=== PATIENT | female | born 1960 | race Two or more races ===

== ENCOUNTER → 2024-08-09 | Outpatient (CLI) | payer MEDICAID, SELFPAY ==
--- NOTE | 2024-08-09 11:00 | XR_ITS ---
Examination: Screening digital mammography, bilateral Computer aided detection 3-D breast Tomosynthesis, bilateral Date and time of exam: 08/09/2024, 10:58 AM Comparisons: August 2014 through August 2023 Indications: Screening Technique: Nonmagnified MLO, CC views of the breasts to been obtained, reconstructed from 3-D Tomosynthesis images. R2 computer aided detection program utilized for evaluation of suspicious masses and/or abnormal calcifications. 3-D Tomosynthesis images obtained. Technologist: Findings: There are scattered areas of fibroglandular density. No evidence of abnormal masses or suspicious calcifications. Impression: BI-RADS category 1: Negative findings (within normal) Recommend 1 year follow-up mammogram
== END | disposition home or self-care (01) ==
PROVIDERS: Referring Provider Physician Assistant; Visit Provider Physician Assistant
DX: Z12.31 Encounter for screening mammogram for malignant neoplasm of breast (principal); R92.313 Mammographic fatty tissue density, bilateral breasts
CPT/HCPCS: 77063; 77067

== ENCOUNTER 2024-12-10 23:06 | Inpatient (IN) | payer MEDICAID, SELFPAY ==
[2024-12-10 23:07] VITALS: BMI 19.1
--- NOTE | 2024-12-10 23:10 | EKG_ITS ---
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
--- NOTE | 2024-12-10 23:14 | XR_ITS ---
Examination: PA lateral chest 2 views. TECHNIQUE: PA lateral chest 2 views Date and time: December 10, 2024, 11:20 PM INDICATIONS: Chest pain shortness of breath today FINDINGS: Normal in size. The lungs are clear. The osseous structures are intact IMPRESSION: No active disease.
[2024-12-10 23:57] VITALS: BP 134/71; PULSE 52; RESP 18; TEMP 36.8; O2SAT 96
[2024-12-11] VITALS (19 sets, daily range): BP systolic 87–172; BP diastolic 51–88; PULSE 50–80; RESP 15–98; TEMP 36.1–36.6; O2SAT 95–98
[2024-12-11 00:05] LABS: Basophils # (Auto) 0.0 Thou/mm3 (0.0-0.2); Basophils % (Auto) 0 % (0-2.5); Eosinophils # (Auto) 0.0 Thou/mm3 (0.0-0.5); Eosinophils % (Auto) 1 % (0-10); Hematocrit 40.7 % (36.0-46.0); Hemoglobin 14.1 g/dL (12.0-16.0); Immature Granulocytes Auto 0.03 Thou/mm3 (0.00-0.00); Lymphocytes # (Auto) 1.9 Thou/mm3 (1.0-4.8); Lymphocytes % (Auto) 29 % (10-50); Mean Corpuscular HGB Conc 34.6 g/dl (31.0-37.0); Mean Corpuscular Hemoglobin 31.0 pg (25.0-35.0); Mean Corpuscular Volume 90 fL (80-100); Monocytes # (Auto) 0.4 Thou/mm3 (0.0-0.8); Monocytes % (Auto) 6 % (0-12); Neutrophils # (Auto) 4.2 Thou/mm3 (1.8-7.7); Neutrophils % (Auto) 64 % (37-80); Nucleated Red Blood Cell # 0.00 Thou/mm3 (0.00-0.00); Nucleated Red Blood Cell % 0 /100 WBC (0); Platelet Count 146 Thou/mm3 (140-440); RDW Standard Deviation 40.7 fL (36.4-46.3); Red Blood Count 4.55 Miln/mm3 (4.00-5.20); White Blood Count 6.6 Thou/mm3 (3.6-11.0)
--- NOTE | 2024-12-11 00:23 | PD.EDCHEST ---
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 Reports associated shortness of breath nausea and vomiting. Reports symptoms tend to worsen with exertion. No definite pleuritic component. No reported recent URI or cough. Cardiac risk factors are positive for diabetes hypertension although negative hypercholesterolemia family history of heart disease or tobacco use. Related Data Home Medications ?Medication ?Instructions ?Recorded ?Confirmed lisinopril 20 mg tablet 10 mg PO QDAY #0 tabs 01/17/14 08/10/18 amoxicillin 500 mg capsule 500 mg PO BID 08/10/18 08/10/18 ibuprofen 600 mg tablet 600 mg PO TID PRN Pain 08/10/18 08/10/18 sitagliptin phosphate 50 1 tab PO BID 08/10/18 08/10/18 mg-metformin 1,000 mg tablet (Janumet) Previous Rx's ?Medication ?Instructions ?Recorded hydrocodone 5 mg-acetaminophen 325 1 tab PO BID PRN pain #10 tabs 11/05/20 mg tablet fluconazole 150 mg tablet 150 mg PO .x1 #1 tab 10/30/21 (Diflucan) acetaminophen 500 mg tablet 500 mg PO QID PRN pain #30 tabs 05/17/22 (Tylenol Extra Strength) hydrocodone 5 mg-acetaminophen 325 1 tab PO BID PRN pain #10 tabs 04/23/23 mg tablet ibuprofen 400 mg tablet 400 mg PO Q8H PRN pain #30 tabs 04/23/23 Allergies Allergy/AdvReac Type Severity Reaction Status Date / Time No Known Allergies Allergy Verified 12/10/24 23:06 Review of Systems Review of Systems Narrative Review of Systems: GEN: No fever, no chills, no weight loss EYES: No discharge, no visual changes, no pain HEENT: No ear pain, no congestion, no sore throat PULM: No shortness of breath, no cough, no congestion CV: As per HPI GI: No nausea, no vomiting, no diarrhea, no pain, no constipation : No frequency, no urgency and no dysuria MUSC/SKEL: No joint pain, no back pain SKIN: No rash PSYCH: No hallucinations, no depression HEME/LYMPH: No easy bleeding or bruising tendencies NEURO: No weakness, no headache Past Medical History Past Medical History CARDIAC: Positive Hypertension ENDOCRINE: Positive Diabetes Mellitus Type 2 ED Exam General Limitations: Present no limitations General appearance: Present alert and in no apparent distress Head Head exam: Present atraumatic Eye Eye exam: Present normal appearance, PERRL and EOMI ENT ENT exam: Present normal exam, normal oropharynx and mucous membranes moist Neck Neck exam: Present normal inspection, full ROM and trachea midline Chest Chest inspection: Present normal inspection and symmetric chest wall rise Respiratory Respiratory exam: Present normal lung sounds bilaterally Cardiovascular Cardiovascular exam: Present regular rate, normal rhythm and normal heart sounds Abdominal Exam Abdominal exam: Present soft, tenderness, normal bowel sounds and other (Mild epigastric abdominal tenderness) Extremities Exam Extremities exam: Present normal inspection and full ROM Back Exam Back exam: Present normal inspection and full ROM Neurological Exam Neurological exam: Present alert, oriented X3 and CN II-XII intact Psychiatric Psychiatric exam: Present normal affect and normal mood Skin Skin exam: Present warm, dry, intact and normal color Course Quality Measures none Orders Category Date Time Status EKG (ED ONLY) *Do not use* NOW Care 12/10/24 23:10 Completed EKG (ED ONLY) *Do not use* NOW Care 12/11/24 02:29 Completed Notify provider NOW Care 12/11/24 02:32 Active EKG (ED Only) Stat Exams 12/10/24 23:10 Draft EKG (ED Only) Stat Exams 12/11/24 02:29 Draft XR chest 2V Stat Exams 12/10/24 23:14 Completed B-Type Natriuretic Peptide Stat Lab 12/10/24 23:34 Completed CBC Stat Lab 12/10/24 23:34 Completed Comprehensive Metabolic Panel Stat Lab 12/10/24 23:34 Completed Drug Screen,Urine Stat Lab 12/11/24 00:54 Completed LDH (Lactate Dehydrogenase) Stat Lab 12/10/24 23:34 Completed Lipase Stat Lab 12/10/24 23:34 Completed Magnesium Stat Lab 12/10/24 23:34 Completed Partial Thromboplastin Time AM DRAW Lab 12/13/24 05:00 Ordered Partial Thromboplastin Time Stat Lab 12/10/24 23:34 Completed Prothrombin Time with INR AM DRAW Lab 12/13/24 05:00 Ordered Prothrombin Time with INR Stat Lab 12/10/24 23:34 Completed Troponin I Stat Lab 12/10/24 23:34 Completed Troponin I Stat Lab 12/11/24 01:50 Completed UA, C/S IF [Urinalysis, C/S if Indicated] Stat Lab 12/11/24 00:54 Completed Urine Culture Stat Lab 12/11/24 00:54 Received Aspirin Med 12/11/24 00:37 Discontinued 325 mg PO X1 ONE Heparin Inj Med 12/11/24 02:30 Discontinued 2,650 unit IV X1 ONE Heparin/D5w 25K 250 ML Ivpb [Heparin in D5w Ivpb] Med 12/11/24 02:30 Active 25,000 unit in 250 ml IV 12 units/kg/hr Metoclopramide Inj [Reglan Inj] Med 12/11/24 00:35 Discontinued 5 mg IVP X1 ONE Morphine Inj Med 12/11/24 00:35 Discontinued 2 mg IVP X1 ONE Nitroglycerin Oint 2% [Nitro-paste Oint 2%] Med 12/11/24 00:37 Discontinued 1 inch TOP X1 ONE Vital Signs Vital signs: Vital Signs Temperature 98.2 F 12/10/24 23:57 Pulse Rate 52 L 12/10/24 23:57 Respiratory Rate 18 12/10/24 23:57 Blood Pressure 134/71 H 12/10/24 23:57 Pulse Oximetry (%) 96 12/10/24 23:57 Oxygen Delivery Method Room Air 12/10/24 23:57 Chest Pain MDM Narrative MDM Narrative:: Patient presenting with onset of left precordial chest pain/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 Reports associated shortness of breath nausea and vomiting. Reports symptoms tend to worsen with exertion. No definite pleuritic component. No reported recent URI or cough. Please see PE findings. Patient placed on cardiac technician underwent basic cardiac workup and treated with low-dose IV narcotic analgesics/antiemetic. Initial EKG demonstrated clinical ST segment elevations in the inferior leads although no reciprocal ST segment depressions identified. Troponin I was mildly elevated. Patient was treated with topical nitrates/full dose aspirin and serial EKG and cardiac enzymes demonstrated developing non-STEMI. These findings were communicated with dance hall host/hostess who suggested heparinization and observation with intended catheterization. Patient data External records reviewed:: [facility] previous records Clinical information provided by:: patient and family Social determinants that could affect healthcare access:: none Patient has the following chronic illnesses:: Diabetes mellitus/hypertension How is presenting disease/condition affected by chronic disease/condition?: exacerbated by (Patient with multiple cardiac risk factors contributing to ACS) Evaluation data The following diagnostics were reviewed and interpreted by me:: lab results and EKG tracing(s) (EKG interpreted by emergency room physician demonstrates sinus bradycardia with rate of 52 bpm. There is equivocal ST segment elevations noted in the leads III and aVF. There were no reciprocal depressions noted. Orient is leftward intervals are normal. Evidence of an incomplete right bundle branc) Lab and/or radiology exams considered but not ordered:: None Interpretation Summary: Laboratory markers pertinent for elevated troponin and EKG suggestive of non-STEMI. Medications / Prescriptions Medications or Prescriptions considered but not ordered:: None Medication administrations:: Medication Administration History Heparin Sodium/Dextrose (Heparin In D5w Ivpb) 25,000 unit in 250 mls @ 5.334 mls/hr IV .Q24H SUZAN; Protocol Stop: 12/25/24 02:29 Discontinued Medications Aspirin (Aspirin 325 Mg Tablet) 325 mg PO X1 ONE Stop: 12/11/24 00:38 Last Admin: 12/11/24 00:53 Dose: 325 mg Documented By: BOB Heparin Sodium (Porcine) (Heparin Sod Inj 5000 Unit/Ml Vial) 2,650 unit 60 unit/kg (2650 unit) IV X1 ONE; Protocol Stop: 12/11/24 02:31 Metoclopramide HCl (Metoclopramide Inj 5 Mg/Ml Vial 2 Ml) 5 mg IVP X1 ONE; Protocol Stop: 12/11/24 00:36 Last Admin: 12/11/24 00:52 Dose: 5 mg Documented By: BOB Morphine Sulfate (Morphine Sulf Inj 10 Mg/Ml Vial) 2 mg IVP X1 ONE Stop: 12/11/24 00:36 Last Admin: 12/11/24 00:52 Dose: 2 mg Documented By: BOB Nitroglycerin (Nitroglycerin Oint 2% 1 Inch Packet) 1 inch TOP X1 ONE Stop: 12/11/24 00:38 Last Admin: 12/11/24 00:53 Dose: 1 inch Documented By: BOB See above medications administered Consultations Consultation(s) initiated? (list below): Yes Consultation #1 (Physician, Specialty, Details): Dr. Crawford, dance hall host/hostess Time: 02:48 Consultation #2 (Physician, Specialty, Details): Hospitalist Time: 02:48 Diagnosis Chest Pain Differential Diagnosis: other (Non-STEMI) Most likely diagnosis given after review of the tests above:: Non-STEMI Admission Indicated Admission indicated?: indicated Explain why admission is indicated or not indicated:: Prevent hemodynamic compromise/ Admission Request Was there a request for admission?: Yes Admission Attestation Admission request attestation: Discussed case with [] from Hospitalist service regarding admission. Discussed patients ED course, exam findings, labs, and radiology results. The Hospitalist [agrees,declines] to accept the patient for admission. Disposition Plan Disposition Plan: Admit Critical Care Time Critical Care Time Critical Care Time: Yes Total Critical Care Time (min.): 45 Attestation: Critical care time spent with this patient 45 minutes requiring my immediate intervention and after prevent hemodynamic compromise secondary to acute non-STEMI. This is inclusive of continuous bedside management, review laboratory radiographic data, consultations made, serial exams not including billed procedures. Discharge Plan Prescriptions/Referrals Prescriptions/Med Rec: No Action lisinopril 20 MG tablet 10 mg PO QDAY Qty: 0 hydrocodone-acetaminophen 5-325 mg tablet 1 tab PO BID MDD 10 PRN (Reason: pain) Qty: 10 0RF fluconazole [Diflucan] 150 mg tablet 150 mg PO .x1 Qty: 1 0RF ibuprofen 600 mg Tablet 600 mg PO TID PRN (Reason: Pain) Janumet 50-1,000 mg Tablet 1 tab PO BID amoxicillin 500 mg Capsule 500 mg PO BID acetaminophen [Tylenol Extra Strength] 500 mg tablet 500 mg PO QID PRN (Reason: pain) Qty: 30 0RF ibuprofen 400 mg tablet 400 mg PO Q8H PRN (Reason: pain) Qty: 30 0RF hydrocodone-acetaminophen 5-325 mg tablet 1 tab PO BID MDD 10 PRN (Reason: pain) Qty: 10 0RF Referrals: Flory Perdue PA-C [Primary Care Provider] - In 1 week Problem List Clinical Impression: Non-ST elevated myocardial infarction (non-STEMI) Patient/Caregiver Discharge Instructions Print Language: Czech
[2024-12-11 00:29] LABS: INR 1.0 (0.9-1.3); Partial Thromboplastin Time 21.5 Seconds (22.0-36.0); Prothrombin Time 10.7 Seconds (9.0-12.2)
[2024-12-11 00:32] LABS: B-Type Natriuretic Peptide 61 pg/mL (0-100)
[2024-12-11 00:34] LABS: Albumin, Serum 4.5 gm/dL (3.4-4.8); Albumin/Globulin Ratio 1.8 (1.2-2.2); Alkaline Phosphatase 144 U/L (46-116); Anion Gap 10 (7-16); Aspartate Amino Transferase 21 U/L (0-34); BUN/Creatinine Ratio 15 Ratio (12-20); Bilirubin,Total 0.8 mg/dL (0.3-1.2); Blood Urea Nitrogen 12 mg/dL (9-23); Calcium 9.2 mg/dL (8.3-10.6); Calcium (Corrected) 9.2 mg/dL (8.5-10.1); Carbon Dioxide 27.4 mMol/L (20.0-31.0); Chloride 103 mMol/L (98-107); Creatinine (Component) 0.8 mg/dL (0.6-1.3); Estimated Creatinine Clearance 48.5 mL/min (>60); Globulin 2.5 gm/dL (2.3-3.5); Glucose 286 mg/dL (74-106); LDH (Lactate Dehydrogenase) 202 U/L (120-246); Magnesium 1.6 mg/dL (1.6-2.6); Osmolality,Calculated 289 (275-295); Potassium 3.6 mMol/L (3.4-5.1); Sodium 140 mMol/L (136-145); Total Protein 7.0 gm/dL (5.7-8.2); eGFR > 60 See Note
[2024-12-11 00:35] LABS: Troponin I 0.236 ng/mL (0.0-0.045)
[2024-12-11 00:45] LABS: Alanine Aminotransferase 10 U/L (10-49)
[2024-12-11] MEDS: METOCLOPRAMIDE INJ 5 MG/ML VIAL 2 ML IVP (00:52)
[2024-12-11] MEDS: MORPHINE SULF INJ 10 MG/ML VIAL 2 MG IVP (00:52)
[2024-12-11] MEDS: NITROGLYCERIN OINT 2% 1 INCH PACKET TOP (00:53)
[2024-12-11 01:10] LABS: Lipase 39 U/L (12-53)
[2024-12-11 01:38] LABS: Collection Type, Urine Clean Catch
[2024-12-11 01:47] LABS: Bilirubin,Urine Negative (Negative); Blood,Urine Negative (Negative); Clarity,Urine Clear (Clear/Hazy); Color,Urine Lt-Yellow (Lt Yel-Yel); Glucose, Urine 4+ (Negative); Ketones,Urine 1+ (Negative); Leukocyte Esterase,Urine Positive (Negative); Nitrite,Urine Negative (Negative); PH,Urine 7.5 (5.0-7.0); Protein,Urine Negative (Neg - Trace); RBC,Urine 5 /hpf (0-3); Specific Gravity,Urine 1.036 (1.001-1.035); Squamous Epithelial Cell,Urine 7 /hpf (0-5); Urobilinogen,Urine Negative mg/dL (0.0-1.0); WBC,Urine 27 /hpf (0-5)
[2024-12-11 01:49] LABS: Culture Indicated,Urine Yes
[2024-12-11 01:53] LABS: Amphetamine/Methamp Scrn,U Negative (Negative); Barbiturate Screen,Urine Negative (Negative); Benzodiazepines Screen,Urine Negative (Negative); Benzoylecgonine Screen, Ur Negative (Negative); Fentanyl Screen,Urine Negative (Negative); Opiate Screen,Urine Negative (Negative); THC Screen,Urine Negative (Negative)
[2024-12-11 02:28] LABS: Troponin I 3.909 ng/mL (0.0-0.045)
--- NOTE | 2024-12-11 02:29 | EKG_ITS ---
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
[2024-12-11] MEDS: HEPARIN SOD INJ 5000 UNIT/ML VIAL 2650 UNIT IV (02:53)
[2024-12-11] MEDS: Heparin/D5w 25K 250 ML Ivpb 25,000 UNIT/250 ML BAG 5.334 UNIT IV (02:54)
--- NOTE | 2024-12-11 03:36 | XR_ITS ---
Examination: Abdomen AP single view Technique: AP portable supine abdomen, single view Exam date and time: December 11, 2024, 0339 hours INDICATIONS: Abdominal pain today. FINDINGS: Moderate to large amounts of air and stool throughout the colon Mild small bowel ileus. No free air. Surgical clips upper right abdomen. Prominent osteopenia IMPRESSION: Moderate to large amounts of stool throughout the colon. Mild small bowel ileus
--- NOTE | 2024-12-11 03:49 | PD.HHHP ---
Documentation for date of: 12/11/24 HPI - Hospitalist History of Present Illness History of present illness: Patient is a 64 years old female with past medical history of diabetes mellitus and hypertension who presented to the ED with complaint of left-sided chest pain and left upper quadrant abdominal pain which started 9 PM this evening. Patient was resting at home when the pain started. She also complains of pain around her neck and head but denied radiation to her arms. Pain was constant before arrival in the ED, was 10/10 previously but has improved after morphine and nitroglycerin in the ED. She denies any shortness of breath, palpitations but endorses nausea and vomiting. She also denied fever, chills, constipation, diarrhea. Patient has been having burning micturition for last month. In the ED, initial vitals were significant for pulse of 52, blood pressure 134/71, rest of the vitals were within normal limits, saturating well on room air. Lab results significant for glucose of 286, ALP 144, troponin 0.236, which up trended to 3.909. Urinalysis showed 4+ glucose, 27 WBCs, positive leukocyte esterase. Chest x-ray was obtained, which did not show any active disease. Initial EKG showed sinus bradycardia with minimal ST elevation in lead III and aVF without reciprocal changes. Follow-up EKG showed T wave inversion in lead II, III and aVF but no ST elevation. Cardiology was contacted by ED, recommended heparin gtt. and admission for further management and evaluation. Patient had received morphine 2 mg IV, metoclopramide 5 mg IV, aspirin 325 oral, nitroglycerin patch in the ED she was also started on heparin drip. Review of Systems Review of Systems Systems Reviewed: All systems reviewed, normal except as documented Meds Home Medications and Allergies Home Medications ?Medication ?Instructions ?Recorded ?Confirmed ?Type lisinopril 20 mg tablet 10 mg PO QDAY #0 tabs 01/17/14 08/10/18 History amoxicillin 500 mg capsule 500 mg PO BID 08/10/18 08/10/18 History ibuprofen 600 mg tablet 600 mg PO TID PRN Pain 08/10/18 08/10/18 History sitagliptin phosphate 50 1 tab PO BID 08/10/18 08/10/18 History mg-metformin 1,000 mg tablet (Janumet) Allergies Allergy/AdvReac Type Severity Reaction Status Date / Time No Known Allergies Allergy Verified 12/10/24 23:06 Exam Vital Signs Temp Pulse Resp BP Pulse Ox O2 Del Method 98.2 F 69 17 154/81 H 96 Room Air 12/10/24 23:57 12/11/24 03:00 12/11/24 03:00 12/11/24 03:00 12/11/24 03:00 12/11/24 03:00 Narrative General: Comfortable, Alert and Oriented x 4, saturating well on room air HEENT: Moist mucous membranes, oropharynx clear, poor dentition Neck: Supple, No masses, No JVD CVS: S1S2 Regular rate and rhythm, No murmurs, rubs or gallops, mild tenderness around left lower chest Lungs: Clear to auscultate bilaterally, no wheezing, crackles Abd: Soft, tenderness around left upper quadrant Ext: Normal strength, sensation, no edema Neuro: Moves all extremities, no obvious focal deficits Results - Hospitalist Labs Diagrams: 12/10/24 23:34 12/10/24 23:34 Labs: Short CBC 12/10/24 Range/Units 23:34 WBC 6.6 (3.6-11.0) Thou/mm3 Hgb 14.1 (12.0-16.0) g/dL Hct 40.7 (36.0-46.0) % Plt Count 146 (140-440) Thou/mm3 BMP 12/10/24 23:34 Sodium 140 Potassium 3.6 Chloride 103 Carbon Dioxide 27.4 BUN 12 Creatinine 0.8 Glucose 286 H Calcium 9.2 Cardiac Enzymes 12/10/24 12/11/24 Range/Units 23:34 01:50 Troponin I 0.236 H* 3.909 H* D (0.0-0.045) ng/mL Liver Function 12/10/24 Range/Units 23:34 Total Bilirubin 0.8 (0.3-1.2) mg/dL AST 21 (0-34) U/L ALT 10 (10-49) U/L Alkaline Phosphatase 144 H (46-116) U/L Albumin 4.5 (3.4-4.8) gm/dL Urine 12/11/24 Range/Units 00:54 Urine Color Lt-Yellow (Lt Yel-Yel) Urine Clarity Clear (Clear/Hazy) Urine pH 7.5 H (5.0-7.0) Ur Specific [place] 1.036 H (1.001-1.035) Urine Protein Negative (Neg - Trace) Urine Glucose (UA) 4+ A (Negative) Assessment & Plan -Hospitalist Additional Plan Additional Plan: Patient is a 64 years old female with past medical history of diabetes mellitus and hypertension who presented to the ED with complaint of left-sided chest pain and left upper quadrant pain. In the ED, her troponin up trended from 0.236 to 3.909. After examination of the patient and review of the clinical data I feel that this patient needs admission to the hospital for further treatment/evaluation. #NSTEMI #Chest pain Patient presented with left sided chest pain, pain around her neck and left upper quadrant pain. Also had nausea and vomiting associated. Does have some tenderness around the same area. Initial EKG showed minimal ST elevation on lead III and aVF, follow-up EKG showed T wave inversion in lead II, III and aVF Initial troponin was 0.236, up trended to 3.909 Cardiology was contacted by ED, recommended starting patient on heparin drip, will follow patient along with us, appreciate recommendations Continues to be on heparin drip, received loading dose aspirin in the ED We will continue with aspirin daily along with high intensity Atorvastatin Trending troponin, nitroglycerin as needed, telemetry Echocardiography ordered Abdominal x-ray ordered to evaluate for abdominal pain Ordered 40 mEq of potassium and 4 mg of magnesium, we will keep potassium above 4 and magnesium above 2. #UTI Patient complained of burning micturition for almost a month Urinalysis showed positive leukocyte esterase, 27 WBCs Started patient on IV Rocephin daily Urine culture ordered obtained #Diabetes mellitus Holding home medication Started on insulin sliding scale Frequent glucose checks, hypoglycemia protocol in place #Hypertension Started lisinopril 10 mg daily Will monitor closely and add more antihypertensives if blood pressure continues to be high Diet: N.p.o., plan to start diet after discussion with cardiology in a.m. CODE STATUS: Full code DVT prophylaxis: Patient currently on heparin drip for NSTEMI Chey Gibbs MD Quality Measures Quality Measures none Advance care planning discussed with:: patient
[2024-12-11] MEDS: cefTRIAXone/D5w 1gm IV premix 1 GM/50 ML BAG IV (04:41)
[2024-12-11 05:02] LABS: Basophils # (Auto) 0.0 Thou/mm3 (0.0-0.2); Basophils % (Auto) 0 % (0-2.5); Eosinophils # (Auto) 0.0 Thou/mm3 (0.0-0.5); Eosinophils % (Auto) 0 % (0-10); Hematocrit 37.0 % (36.0-46.0); Hemoglobin 12.8 g/dL (12.0-16.0); Immature Granulocytes Auto 0.04 Thou/mm3 (0.00-0.00); Lymphocytes # (Auto) 1.0 Thou/mm3 (1.0-4.8); Lymphocytes % (Auto) 10 % (10-50); Mean Corpuscular HGB Conc 34.6 g/dl (31.0-37.0); Mean Corpuscular Hemoglobin 31.2 pg (25.0-35.0); Mean Corpuscular Volume 90 fL (80-100); Monocytes # (Auto) 0.3 Thou/mm3 (0.0-0.8); Monocytes % (Auto) 3 % (0-12); Neutrophils # (Auto) 8.5 Thou/mm3 (1.8-7.7); Neutrophils % (Auto) 86 % (37-80); Nucleated Red Blood Cell # 0.00 Thou/mm3 (0.00-0.00); Nucleated Red Blood Cell % 0 /100 WBC (0); Platelet Count 138 Thou/mm3 (140-440); RDW Standard Deviation 40.9 fL (36.4-46.3); Red Blood Count 4.10 Miln/mm3 (4.00-5.20); White Blood Count 9.8 Thou/mm3 (3.6-11.0)
[2024-12-11] MEDS: Magnesium Sulfate 4 GM Ivpb 4 GM/50 ML BAG IV ×2 (05:12→20:20)
[2024-12-11] MEDS: INSULIN LISPRO (AdmeLOG) 1 UNIT/0.01 ML UNIT SC ×3 (05:31→23:22)
[2024-12-11 05:33] LABS: Alanine Aminotransferase 10 U/L (10-49); Albumin, Serum 4.1 gm/dL (3.4-4.8); Albumin/Globulin Ratio 1.8 (1.2-2.2); Alkaline Phosphatase 122 U/L (46-116); Anion Gap 11 (7-16); Aspartate Amino Transferase 41 U/L (0-34); BUN/Creatinine Ratio 25 Ratio (12-20); Bilirubin,Total 0.8 mg/dL (0.3-1.2); Blood Urea Nitrogen 15 mg/dL (9-23); Calcium 8.6 mg/dL (8.3-10.6); Calcium (Corrected) 8.6 mg/dL (8.5-10.1); Carbon Dioxide 25.3 mMol/L (20.0-31.0); Cardiac Risk Estimate 2.3 RATIO (3.7-5.6); Chloride 104 mMol/L (98-107); Cholesterol 161 mg/dL (132-200); Creatinine (Component) 0.6 mg/dL (0.6-1.3); Estimated Creatinine Clearance 64.7 mL/min (>60); Globulin 2.3 gm/dL (2.3-3.5); Glucose 277 mg/dL (74-106); HDL Cholesterol 71 mg/dL (40-60); LDL Cholesterol,Calculated 79 mg/dL (0-130); Magnesium 1.6 mg/dL (1.6-2.6); Osmolality,Calculated 290 (275-295); Phosphorous 2.9 mg/dL (2.4-5.1); Potassium 3.7 mMol/L (3.4-5.1); Sodium 140 mMol/L (136-145); Total Protein 6.4 gm/dL (5.7-8.2); Triglycerides 53 mg/dL (30-150); eGFR > 60 See Note
[2024-12-11 06:33] LABS: Glucose Estimated Average 212 mg/dL (80-131); Hemoglobin A1C 9.0 % Hgb (4.8-6.0)
--- NOTE | 2024-12-11 07:27 | PC.NURSE ---
Received report from Tomasa HENLEY and assumed care of patient. Patient resting in bed and states pain 8/10. Is alert and responds to questions appropriately.
[2024-12-11] MEDS: MORPHINE SULF INJ 10 MG/ML VIAL IVP ×2 (08:15→12:03)
[2024-12-11] MEDS: ASPIRIN EC 81 MG TABEC PO (09:08)
--- NOTE | 2024-12-11 10:31 | ESCONSULT_ITS ---
<Statement entered by Abhishek Crawford MD - 12/11/24 18:56> I personally evaluated the patient examined the patient with the resident physician Dr. Flores PGY 1 agree with treatment plan recommendation patient clearly has acute non-ST segment elevation myocardial infarction subtle change inferior leads possible RCA occlusion. The patient aspirin Plavix and heparin she is [place]an-speaking patient detail history was obtained as well as explained over the angiogram patient will require coronary angiogram in the morning for further evaluation. Risks benefits alternatives explained patient agreed to have the procedure performed. HPI Data of Consult Requesting Physician: Chey Gibbs MD Admitting Provider: Chey Gibbs MD Attending Provider: Chey Gibbs MD Primary Care Provider: Flory Perdue PA-C Consult Narrative History of present illness: 64-year-old female with a past medical history of hypertension, type 2 diabetes who presented to the ED on the evening of 12/10/2024 with chest pain and vomiting. She vomited after dinner and had persistent chest pain and left arm pain. In the ED, initial vitals were significant for pulse of 52, blood pressure 134/71, rest of the vitals were within normal limits, saturating well on room air. Lab results significant for glucose of 286, ALP 144. Troponin on arrival was 0.236, which up trended to 3.909. Most recent EKG was negative for any acute ST segment changes, incomplete right bundle branch block. Cardiology was consulted for the patient's chest pain and elevated troponins. Upon initial consultation the patient reports that her chest pain is improving in the morning of 12/11/2024. Past medical history: History of hypertension History of diabetes type 2. Home Medications: Lisinopril Amoxicillin Ibuprofen Sitagliptin cc:: cc: Chey Gibbs MD Review of Systems Review of Systems Narrative Review of Systems: Review of Systems: -General: Denies fevers, chills. -HEENT: Patient endorses a slight headache, denies congestion sore throat or runny nose. -Cardiac: Patient mentions that her chest pain is improving. It was a 10 out of 10 on arrival but now it is a 6 out of 10 morning of 12/11/2024. -Pulmonary: Denies shortness of breath or cough. -GI: Patient endorses burning in her chest when she was vomiting the evening of 12/10/2024, likely related to acid. Currently denies nausea, diarrhea, constipation, melena, or hematochezia. -: Patient endorses burning micturition over the past month. -MSK: Endorses left arm pain at the time of chest pain after vomiting evening of 12/10/2024. Denies pain in the other extremities, or joints. Denies left arm pain on consultation. -Neuro: Denies weakness, numbness, vision changes, or speech difficulty. Exam Vital Signs Temp Pulse Resp BP Pulse Ox O2 Del Method 97.8 F 50 L 16 135/73 H 97 Room Air 12/11/24 09:09 12/11/24 09:09 12/11/24 09:09 12/11/24 09:09 12/11/24 09:09 12/11/24 09:09 Narrative Exam General: Lethargic lady. Awake and in no acute distress. Conversational and non-toxic appearing. Neurologic: GCS 15. Alert and oriented x3, no gross neurological deficit, and patient able to move all 4 extremities. HEENT: Normocephalic, atraumatic, mucous membranes moist. Pupils reactive to light. Heart: Regular rate and rhythm, normal S1 and S2, no murmurs. Lungs: Clear to auscultation bilaterally with no wheezing or crackles. Abdomen: Soft, nondistended, nontender, positive bowel sounds. No guarding or rebound tenderness. Extremities: No edema. 2+ radial and dorsalis pedis pulses bilaterally. Skin: Warm. Dry. No rash or ecchymoses. Results Labs 12/11/24 04:09 12/11/24 04:09 Labs: Short CBC 12/10/24 12/11/24 Range/Units 23:34 04:09 WBC 6.6 9.8 D (3.6-11.0) Thou/mm3 Hgb 14.1 12.8 (12.0-16.0) g/dL Hct 40.7 37.0 (36.0-46.0) % Plt Count 146 138 L (140-440) Thou/mm3 BMP 12/10/24 12/11/24 23:34 04:09 Sodium 140 140 Potassium 3.6 3.7 Chloride 103 104 Carbon Dioxide 27.4 25.3 BUN 12 15 Creatinine 0.8 0.6 Glucose 286 H 277 H Calcium 9.2 8.6 Cardiac Enzymes 12/10/24 12/11/24 Range/Units 23:34 01:50 Troponin I 0.236 H* 3.909 H* D (0.0-0.045) ng/mL Liver Function 12/10/24 12/11/24 Range/Units 23:34 04:09 Total Bilirubin 0.8 0.8 (0.3-1.2) mg/dL AST 21 41 H (0-34) U/L ALT 10 10 (10-49) U/L Alkaline Phosphatase 144 H 122 H D (46-116) U/L Albumin 4.5 4.1 (3.4-4.8) gm/dL Urine 12/11/24 Range/Units 00:54 Urine Color Lt-Yellow (Lt Yel-Yel) Urine Clarity Clear (Clear/Hazy) Urine pH 7.5 H (5.0-7.0) Ur Specific [place] 1.036 H (1.001-1.035) Urine Protein Negative (Neg - Trace) Urine Glucose (UA) 4+ A (Negative) Quality Measures Quality Measures none Advance care planning discussed with:: patient Medications Home Medications and Allergies Home Medications ?Medication ?Instructions ?Recorded ?Confirmed ?Type lisinopril 20 mg tablet 10 mg PO QDAY #0 tabs 08/10/18 History amoxicillin 500 mg capsule 500 mg PO BID 08/10/1801/20 History ibuprofen 600 mg tablet 600 mg PO TID PRN Pain 08/1008/10/18 History sitagliptin phosphate 50 1 tab PO BID 08/10/18 History mg-metformin 1,000 mg tablet (Janumet) Allergies Allergy/AdvReac Type Severity Reaction Status Date / Time No Known Allergies Allergy Verified 12/10/24 23:06 Visit Medications Acetaminophen (Acetaminophen 325 Mg Tablet) 650 mg PO Q6H PRN PRN Reason: Fever>101.5,headache,mild pain Stop: 01/10/25 03:26 Hydrocodone Bitart/Acetaminophen (Hydrocodone/Apap 10/325 Tab) 1 tab PO Q6HR PRN PRN Reason: PAIN SCALE 4-6 (Moderate Stop: 12/16/24 03:26 Aspirin (Aspirin Ec 81 Mg Tabec) 81 mg PO QDAY [facility] Stop: 01/10/25 08:59 Last Admin: 12/11/24 09:08 Dose: 81 mg Atorvastatin Calcium (Atorvastatin Calcium 10 Mg Tablet) 80 mg PO HS [facility] Stop: 01/10/25 20:59 Dextrose (Dextrose 50%-Water Inj 50 Ml Syringe) 25 ml IV Q15MIN PRN PRN Reason: BG 50-70 responsive npo pt Stop: 01/10/25 03:36 Dextrose (Dextrose 50%-Water Inj 50 Ml Syringe) 50 ml IV Q15MIN PRN PRN Reason: BG <50 OR BG <70 & pt unresponsive Stop: 01/10/25 03:36 Glucagon (Glucagon Inj 1 Mg Vial) 1 mg IM Q15MIN PRN PRN Reason: BG <70, and no IV access Heparin Sodium/Dextrose (Heparin In D5w Ivpb) 25,000 unit in 250 mls @ 5.334 mls/hr IV .Q24H [facility]; Protocol Stop: 12/25/24 02:29 Last Admin: 12/11/24 02:54 Dose: 12 units/kg/hr, 5.334 mls/hr Ceftriaxone Sodium/Dextrose (Rocephin/D5w 1gm Iv Premix) 1 gm in 50 mls @ 100 mls/hr IV Q24H [facility] Stop: 12/18/24 03:59 Last Infusion: 12/11/24 05:12 Dose: Infused Insulin Human Lispro (Insulin Lispro (Admelog) 1 Unit/0.01 Ml Unit) 0 unit SC Q6HR [facility]; Protocol Stop: 01/10/25 05:59 Last Admin: 12/11/24 05:31 Dose: 2 unit Lisinopril (Lisinopril 2.5 Mg Tablet) 10 mg PO QDAY [facility] Stop: 01/10/25 03:49 Last Admin: 12/11/24 05:24 Dose: 10 mg Morphine Sulfate (Morphine Sulf Inj 10 Mg/Ml Vial) 1 mg IVP Q4H PRN PRN Reason: PAIN SCALE 7-10 (Severe Stop: 12/16/24 03:26 Last Admin: 12/11/24 08:15 Dose: 1 mg Nitroglycerin (Nitroglycerin 0.4 Mg Subl Btl #25) 0.4 mg SL Q5MIN PRN PRN Reason: CHEST PAIN Ondansetron HCl (Ondansetron Inj 2 Mg/Ml Inj 2 Ml) 4 mg IVP Q6H PRN; Protocol PRN Reason: NAUSEA OR VOMITING Stop: 01/10/25 03:26 Discontinued Medications Aspirin (Aspirin 325 Mg Tablet) 325 mg PO X1 ONE Stop: 12/11/24 00:38 Last Admin: 12/11/24 00:53 Dose: 325 mg Heparin Sodium (Porcine) (Heparin Sod Inj 5000 Unit/Ml Vial) 2,650 unit 60 unit/kg (2650 unit) IV X1 ONE; Protocol Stop: 12/11/24 02:31 Last Admin: 12/11/24 02:53 Dose: 2,650 unit Magnesium Sulfate (Magnesium Sulfate Ivpb) 4 gm in 50 mls @ 12.5 mls/hr IV X1 ONE Stop: 12/11/24 07:49 Last Infusion: 12/11/24 09:14 Dose: Infused Metoclopramide HCl (Metoclopramide Inj 5 Mg/Ml Vial 2 Ml) 5 mg IVP X1 ONE; Protocol Stop: 12/11/24 00:36 Last Admin: 12/11/24 00:52 Dose: 5 mg Morphine Sulfate (Morphine Sulf Inj 10 Mg/Ml Vial) 2 mg IVP X1 ONE Stop: 12/11/24 00:36 Last Admin: 12/11/24 00:52 Dose: 2 mg Nitroglycerin (Nitroglycerin Oint 2% 1 Inch Packet) 1 inch TOP X1 ONE Stop: 12/11/24 00:38 Last Admin: 12/11/24 00:53 Dose: 1 inch Potassium Chloride (Potassium Chloride 20 Meq Tabcr) 40 meq PO X1 ONE Stop: 12/11/24 03:51 Last Admin: 12/11/24 04:40 Dose: 40 meq Assessment & Plan Plan 64-year-old female with a past medical history of hypertension type 2 diabetes who presented with chest pain and left arm pain. Labs were significant for elevated troponins in the ED. EKG was negative for any acute ST segment changes. Cardiology was consulted for management of the patient's NSTEMI. #NSTEMI #Elevated troponins #Chest pain - Patient presented to the ED on 12/10/2024 with chest pain and left arm pain after vomiting after dinner, consider irregular myocardial infarction presentations in female patients - The patient's troponins were uptrending from 0.2 to 3.9 - EKG was negative for acute ST segment changes, there was a borderline right bundle branch block, the patient was in sinus bradycardia upon admission but since resolved per the most recent EKG. Plan: - Continue heparin drip - Continue nitroglycerin as needed for chest pain - Continue aspirin 81 mg, 325 mg loading dose given - Start Plavix, 300mg loading dose, 75mg daily - Will plan for coronary artery cath 12/12/2024 - NPO after midnight 12/12/2024 #UTI #Diabetes mellitus #Hypertension Remainder the patient's hospital problems will be managed per the primary team. Patient was seen and discussed with my attending physician Dr. Crawford. Koby Flores DO PGY-1.
[2024-12-11 10:58] LABS: Partial Thromboplastin Time 28.6 Seconds (22.0-36.0)
[2024-12-11] MEDS: ONDANSETRON INJ 2 MG/ML INJ 2 ML 4 MG IVP (12:03)
[2024-12-11 12:05] LABS: Troponin I 2.995 ng/mL (0.0-0.045)
[2024-12-11] MEDS: HEPARIN SOD INJ 5000 UNIT/ML VIAL 2600 UNIT IV (13:11)
--- NOTE | 2024-12-11 13:43 | ESPR_ITS ---
<Statement entered by Sathya Ann MD - 12/14/24 14:38> I reviewed above note and agree with findings and plans. I have also personally examined the patient with medicine team and went over assessment and plan with medical team including project management intern and resident physician. <Statement entered by Amalia Corcoran MD - 12/11/24 21:57> Pt is seen at bedside, continues to have chest pain that is present at rest. Currently states pain is 7/10 and radiating to left arm. Pt denies any previous history of similar episodes. Pt denies any previous cardiac history. Pt was started on heparin drip as per ACS protocol by the night team, will continue it. Pt was seen by field underwriter Dr. Crawford who plans to take pt to cardiac cath tomorrow. Troponins peaked at 3.909 and have down trended. Patient was seen and examined by me personally. I have directly supervised and reviewed documentation by the team resident and agree with its findings. ------- Plan of care was discussed with the attending, Dr. Marissa Corcoran, PGY-2 Documentation for date of: 12/11/24 Subjective Subjective Interval history: Overnight events: Admitted overnight. Patient was seen and examined at bedside. AM vitals and labs reviewed. Patient states that her chest pain is improved compared to overnight. No other complaints at this time. Troponin trend 0.236, 3.909, 2.995, 2.653. Continuing heparin drip, aspirin 81 mg, Rocephin 1 g, and lisinopril 10 mg. Cardiology to perform cath tomorrow 12/12. Patient NPO at midnight. Review of systems otherwise negative except for what is mentioned above. Exam Vital Signs Temp Pulse Resp BP Pulse Ox O2 Del Method 97.6 F 60 17 126/66 98 Room Air 12/11/24 12:12/11/24 12:12/11/24 12:12/11/24 12:12/11/24 12:12/11/24 12:07 Narrative Exam Physical Exam: General: Alert, no acute distress. Skin: Warm, dry, intact, no obvious rash. Head: Normocephalic, atraumatic. Eye: Normal conjunctiva, PERRL. Cardiovascular: Regular rate and rhythm, no murmur, +S1/S2. Respiratory: Lungs are clear to auscultation, respirations unlabored, no crackles, no wheezing. Gastrointestinal: Soft, nontender, non-distended. No guarding or rebound tenderness. Extremities: No edema, no cyanosis, no clubbing. 2+ radial pulse bilaterally, 2+ pedal pulse bilaterally. Neuro: No focal deficits observed. Conversant, moving all extremities. No overt cerebellar signs/incoordination. Psychiatric: Cooperative, appropriate affect. Objective Labs 12/11/24 04:09 12/11/24 04:09 Labs: Laboratory Results - last 24 hr 12/10/24 12/11/24 12/11/24 23:34 00:54 01:50 WBC 6.6 RBC 4.55 Hgb 14.1 Hct 40.7 MCV 90 MCH 31.0 MCHC 34.6 RDW Std Deviation 40.7 Plt Count 146 Neut % (Auto) 64 Lymph % (Auto) 29 [place] % (Auto) 6 Eos % (Auto) 1 Baso % (Auto) 0 Neut # (Auto) 4.2 Lymph # (Auto) 1.9 [place] # (Auto) 0.4 Eos # (Auto) 0.0 Baso # (Auto) 0.0 Immature Gran # (Auto) 0.03 H Absolute Nucleated RBC 0.00 Immature Gran % 1 H Nucleated RBC % 0 PT 10.7 INR 1.0 APTT 21.5 L Sodium 140 Potassium 3.6 Chloride 103 Carbon Dioxide 27.4 Anion Gap 10 BUN 12 Creatinine 0.8 Estim Creat Clear Calc 48.5 L eGFR > 60 BUN/Creatinine Ratio [address] Glu mg/dL Hemoglobin A1c Calculated Osmolality 289 Calcium 9.2 Corrected Calcium 9.2 Phosphorus Magnesium 1.6 Total Bilirubin 0.8 AST 21 ALT 10 Alkaline Phosphatase 144 H Lactate Dehydrogenase 202 Troponin I 0.236 H* 3.909 H* D B-Natriuretic Peptide 61 Total Protein 7.0 Albumin 4.5 Globulin 2.5 Albumin/Globulin Ratio 1.8 Triglycerides Cholesterol LDL Cholesterol, Calc HDL Cholesterol Cholesterol/HDL Ratio Lipase 39 Ur Collection Type Clean Catch Urine Color Lt-Yellow Urine Clarity Clear Urine pH 7.5 H Ur Specific [place] 1.036 H Urine Protein Negative Urine Glucose (UA) 4+ A Urine Ketones 1+ A Urine Blood Negative Urine Nitrite Negative Urine Bilirubin Negative Urine Urobilinogen (Auto) Negative Ur Leukocyte Esterase Positive Urine RBC 5 H Urine WBC 27 H Ur Squamous Epith Cells 7 H Urine Bacteria None Ur Culture Indicated? Yes Urine Opiates Screen Negative Urine Fentanyl Screen Negative Ur Barbiturates Screen Negative U Amphetamin/Meth Scrn Negative U Benzodiazepines Scrn Negative U Cocaine Metab Screen Negative U Marijuana (THC) Screen Negative 12/11/24 12/11/24 04:09 10:20 WBC 9.8 D RBC 4.10 Hgb 12.8 Hct 37.0 MCV 90 MCH 31.2 MCHC 34.6 RDW Std Deviation 40.9 Plt Count 138 L Neut % (Auto) 86 H Lymph % (Auto) 10 [place] % (Auto) 3 Eos % (Auto) 0 Baso % (Auto) 0 Neut # (Auto) 8.5 H Lymph # (Auto) 1.0 [place] # (Auto) 0.3 Eos # (Auto) 0.0 Baso # (Auto) 0.0 Immature Gran # (Auto) 0.04 H Absolute Nucleated RBC 0.00 Immature Gran % 0 Nucleated RBC % 0 PT INR APTT 28.6 Sodium 140 Potassium 3.7 Chloride 104 Carbon Dioxide 25.3 Anion Gap 11 BUN 15 Creatinine 0.6 Estim Creat Clear Calc 64.7 eGFR > 60 BUN/Creatinine Ratio 25 H Glucose [address] Glu mg/dL 212 H Hemoglobin A1c 9.0 H Calculated Osmolality 290 Calcium 8.6 Corrected Calcium 8.6 Phosphorus 2.9 Magnesium 1.6 Total Bilirubin 0.8 AST 41 H ALT 10 Alkaline Phosphatase 122 H D Lactate Dehydrogenase Troponin I 2.995 H* D B-Natriuretic Peptide Total Protein 6.4 Albumin 4.1 Globulin 2.3 Albumin/Globulin Ratio 1.8 Triglycerides 53 Cholesterol 161 LDL Cholesterol, Calc 79 HDL Cholesterol 71 H Cholesterol/HDL Ratio 2.3 L Lipase Ur Collection Type Urine Color Urine Clarity Urine pH Ur Specific [place] Urine Protein Urine Glucose (UA) Urine Ketones Urine Blood Urine Nitrite Urine Bilirubin Urine Urobilinogen (Auto) Ur Leukocyte Esterase Urine RBC Urine WBC Ur Squamous Epith Cells Urine Bacteria Ur Culture Indicated? Urine Opiates Screen Urine Fentanyl Screen Ur Barbiturates Screen U Amphetamin/Meth Scrn U Benzodiazepines Scrn U Cocaine Metab Screen U Marijuana (THC) Screen Quality Measures Quality Measures VTE prophylaxis Advance care planning discussed with:: patient, spouse and child Assessment & Plan Assessment Current Active Medications: Generic Name Dose Route Start Last Admin Trade Name Freq PRN Reason Stop Dose Admin Acetaminophen 650 mg 12/11/24 03:27 Acetaminophen 325 Mg Tablet PO 01/10/25 03:26 Q6H PRN Fever>101.5,headache,mild pain Hydrocodone Bitart/Acetaminophen 1 tab 12/11/24 03:27 Hydrocodone/Apap 10/325 Tab PO 12/16/24 03:26 Q6HR PRN PAIN SCALE 4-6 (Moderate Aspirin 81 mg 12/11/24 09:00 12/11/24 09:08 Aspirin Ec 81 Mg Tabec PO 01/10/25 08:59 81 mg QDAY SUZAN Administration Atorvastatin Calcium 80 mg 12/11/24 21:00 Atorvastatin Calcium 10 Mg Tablet PO 01/10/25 20:59 HS SUZAN Dextrose 25 ml 12/11/24 03:37 Dextrose 50%-Water Inj 50 Ml Syringe IV 01/10/25 03:36 Q15MIN PRN BG 50-70 responsive npo pt Dextrose 50 ml 12/11/24 03:37 Dextrose 50%-Water Inj 50 Ml Syringe IV 01/10/25 03:36 Q15MIN PRN BG <50 OR BG <70 & pt unresponsive Glucagon 1 mg 12/11/24 03:37 Glucagon Inj 1 Mg Vial IM Q15MIN PRN BG <70, and no IV access Heparin Sodium/Dextrose 25,000 unit in 250 mls @ 5.334 mls/hr 12/11/24 02:30 12/11/24 13:12 Heparin In D5w Ivpb IV 12/25/24 02:29 16 units/kg/hr .Q24H [facility] 7.112 mls/hr Titration Protocol 12 UNITS/KG/HR Ceftriaxone Sodium/Dextrose 1 gm in 50 mls @ 100 mls/hr 12/11/24 04:00 12/11/24 05:12 Rocephin/D5w 1gm Iv Premix IV 12/18/24 03:59 Infused Q24H [facility] Infusion Insulin Human Lispro 0 unit 12/11/24 06:00 12/11/24 12:02 Insulin Lispro (Admelog) 1 Unit/0.01 Ml Unit SC 01/10/25 05:59 Not Given Q6HR [facility] Protocol Lisinopril 10 mg 12/11/24 03:50 12/11/24 05:24 Lisinopril 2.5 Mg Tablet PO 01/10/25 03:49 10 mg QDAY SUZAN Administration Morphine Sulfate 1 mg 12/11/24 03:27 12/11/24 12:03 Morphine Sulf Inj 10 Mg/Ml Vial IVP 12/16/24 03:26 1 mg Q4H PRN Administration PAIN SCALE 7-10 (Severe Nitroglycerin 0.4 mg 12/11/24 03:32 Nitroglycerin 0.4 Mg Subl Btl #25 SL Q5MIN PRN CHEST PAIN Ondansetron HCl 4 mg 12/11/24 03:27 12/11/24 12:03 Ondansetron Inj 2 Mg/Ml Inj 2 Ml IVP 01/10/25 03:26 4 mg Q6H PRN Administration NAUSEA OR VOMITING Protocol Plan Mrs. Angelo is a 64 year old female with a history of T2DM and HTN who presented to [facility] ED with left-sided chest pain and LUQ abdominal pain that started 9PM 12/10. Patient was admitted for evaluation of NSTEMI. #NSTEMI #Chest pain #Elevated troponins Patient presented to ED with left-sided chest pain, left arm pain, and vomiting. Patient had improvement of chest pain upon administration of nitroglycerin and morphine. Patient had positive troponins of 0.236 and 3.909 in the ED. EKG negative for acute ST segment changes on initial EKG and repeat EKG. - Nitroglycerin as needed for chest pain - Cardiology consulted, recommends coronary artery cath 12/12. - Patient put NPO after midnight for procedure - Continue heparin drip - Continue ASA 81 mg daily - Continue Plavix 75 mg daily - Keep potassium above 4 and magnesium above 2, will replenish as needed #UTI Patient complained of burning micturation for almost a month. UA in ED positive for leukocyte esterase and elevated WBCs. - Continue Rocephin 1g daily - Urine culture collected 12/11, pending results #Non-insulin depedent type 2 diabetes mellitus - Continue sliding scale insulin - Hypoglycemia protocol in place - Will hold home Jardiance and Janumet while hospitalized #Hypertension Patient has a history of hypertension. In ED, patient had elevated BP of 134/71 on arrival. - Continue Lisinipril 10mg daily DVT Prophylaxis: Heparin GI Prophylaxis: N/A Bowel: N/A Diet: Carbohydrate consistent, NPO at midnight [place]: N/A Lines: Peripheral IV Antibiotics: Ceftriaxone (12/11--) Code Status: FULL Reason for Hospitalization: NSTEMI Other Barriers to Discharge: Coronary arterty cath Patient plan of care was discussed with the senior resident Dr. Corcoran (PGY-2) and attending physician Dr. Ann. Clifford Higgins, PGY1
[2024-12-11 14:56] LABS: Troponin I 2.653 ng/mL (0.0-0.045)
[2024-12-11] MEDS: CLOPIDOGREL BISULFATE 75 MG TABLET 300 MG PO (15:31)
[2024-12-11 17:59] LABS: Partial Thromboplastin Time 62.9 Seconds (22.0-36.0)
[2024-12-11] MEDS: SODIUM CHLORIDE 0.9% 500 ML 500 ML 999 ML IV (19:51)
[2024-12-11] MEDS: ATORVASTATIN CALCIUM 10 MG TABLET 80 MG PO (19:55)
[2024-12-11 20:00] LABS: Partial Thromboplastin Time 47.8 Seconds (22.0-36.0)
--- NOTE | 2024-12-11 20:11 | PC.NURSE ---
At 1935, Dr Gibbs was notified of patient BP of 82/48 with HR of 62, MD at bedside. BP currently 95/53 with HR 59, MD ordered NS 500 mL Bolus along with Mag 4GM IVB and K-Dur 40 mEq, no new orders at this time, care continued.
[2024-12-11] MEDS: HEPARIN SOD INJ 5000 UNIT/ML VIAL 1300 UNIT IV (21:41)
--- NOTE | 2024-12-11 23:02 | PC.NURSE ---
MD Millan made aware of patient cardiac rhythm (SB between 53-58 bpm), patient asymptomatic at this time, okayed notification, also made are of patient upcoming cardiac cath procedure, okayed order to hold Heparin Drip at 0600, and to continue ACS protocol until 0600, no new orders at this time, care continued.
--- NOTE | 2024-12-11 23:08 | PC.NURSE ---
MD Millan made aware of patient cardiac rhythm (SB between 53-58 bpm), patient asymptomatic at this time, okayed notification, also made aware of patient upcoming cardiac cath procedure, MD okayed order to hold Heparin Drip at 0600, and to continue to follow protocol until 0600, no new orders at this time, care continued.
[2024-12-12] VITALS (15 sets, daily range): BP systolic 92–143; BP diastolic 49–73; PULSE 52–68; RESP 15–96; TEMP 36–36.9; O2SAT 97–98; BMI 18.7
[2024-12-12] MEDS: cefTRIAXone/D5w 1gm IV premix 1 GM/50 ML BAG IV (04:20)
[2024-12-12 04:34] LABS: Basophils # (Auto) 0.0 Thou/mm3 (0.0-0.2); Basophils % (Auto) 0 % (0-2.5); Eosinophils # (Auto) 0.1 Thou/mm3 (0.0-0.5); Eosinophils % (Auto) 2 % (0-10); Hematocrit 36.2 % (36.0-46.0); Hemoglobin 12.4 g/dL (12.0-16.0); Immature Granulocytes Auto 0.00 Thou/mm3 (0.00-0.00); Lymphocytes # (Auto) 1.8 Thou/mm3 (1.0-4.8); Lymphocytes % (Auto) 39 % (10-50); Mean Corpuscular HGB Conc 34.3 g/dl (31.0-37.0); Mean Corpuscular Hemoglobin 31.4 pg (25.0-35.0); Mean Corpuscular Volume 92 fL (80-100); Monocytes # (Auto) 0.4 Thou/mm3 (0.0-0.8); Monocytes % (Auto) 8 % (0-12); Neutrophils # (Auto) 2.4 Thou/mm3 (1.8-7.7); Neutrophils % (Auto) 52 % (37-80); Nucleated Red Blood Cell # 0.00 Thou/mm3 (0.00-0.00); Nucleated Red Blood Cell % 0 /100 WBC (0); Platelet Count 125 Thou/mm3 (140-440); RDW Standard Deviation 42.2 fL (36.4-46.3); Red Blood Count 3.95 Miln/mm3 (4.00-5.20); White Blood Count 4.7 Thou/mm3 (3.6-11.0)
[2024-12-12 04:59] LABS: Alanine Aminotransferase 10 U/L (10-49); Albumin, Serum 3.5 gm/dL (3.4-4.8); Albumin/Globulin Ratio 1.8 (1.2-2.2); Alkaline Phosphatase 84 U/L (46-116); Anion Gap 8 (7-16); Aspartate Amino Transferase 32 U/L (0-34); BUN/Creatinine Ratio 26 Ratio (12-20); Bilirubin,Total 0.7 mg/dL (0.3-1.2); Blood Urea Nitrogen 13 mg/dL (9-23); Calcium 8.0 mg/dL (8.3-10.6); Calcium (Corrected) 8.4 mg/dL (8.5-10.1); Carbon Dioxide 23.2 mMol/L (20.0-31.0); Chloride 109 mMol/L (98-107); Creatinine (Component) 0.5 mg/dL (0.6-1.3); Estimated Creatinine Clearance 75.9 mL/min (>60); Globulin 2.0 gm/dL (2.3-3.5); Glucose 190 mg/dL (74-106); Osmolality,Calculated 284 (275-295); Potassium 5.0 mMol/L (3.4-5.1); Sodium 140 mMol/L (136-145); Total Protein 5.5 gm/dL (5.7-8.2); eGFR > 60 See Note
[2024-12-12 05:04] LABS: Partial Thromboplastin Time 71.5 Seconds (22.0-36.0)
--- NOTE | 2024-12-12 06:18 | PC.NURSE ---
at 0610, this nurse was alerted that the patient was complaining of ongoing chest pain, Patient was interviewed if pain was of the same quality when he was in the ER, Patient agreed, Patient complaining of pain 10/10 in intensity. VS 135/89, HR 116, O2 Saturation 95% on RA, RR 22, BS 131, Dr Gibbs called to Bedside, and notified of patient condition status, Dr Reza stated that patient would benefit from additional pain medication for patient's pain. Miriam continued, awaiting orders.
[2024-12-12] MEDS: INSULIN LISPRO (AdmeLOG) 1 UNIT/0.01 ML UNIT SC ×2 (06:59→12:29)
--- NOTE | 2024-12-12 07:30 | PC.NURSE ---
Pt taken to [facility] via [facility] accompanied by RN. Heparin drip stopped by night RN at 0600.
[2024-12-12] MEDS: CLOPIDOGREL BISULFATE 75 MG TABLET PO (08:18)
[2024-12-12] MEDS: ASPIRIN EC 81 MG TABEC PO (08:20)
[2024-12-12 08:57] LABS: Magnesium 3.4 mg/dL (1.6-2.6); Phosphorous 2.9 mg/dL (2.4-5.1)
--- NOTE | 2024-12-12 09:22 | PC.SS ---
Follow up note: Cardia Cath today.
--- NOTE | 2024-12-12 10:35 | PC.NURSE ---
Report received from Leslye HENLEY in [facility]. Brigitte can be removed 12/13 @ 10:30, the scarlett can be removed 12/14 @ 10:30.
--- NOTE | 2024-12-12 10:39 | PC.NURSE ---
hand off report given to shaquille gonzalez
--- NOTE | 2024-12-12 10:47 | ESOP_ITS ---
RE: SLICK KENNEDY : 1960 DATE OF OPERATION: 12/12/2024 PROCEDURES PERFORMED: 1. Diagnostic left heart cardiac catheterization, selective coronary angiogram, left ventricular angiogram, CPT 32728. 2. Conscious sedation, 30-minute duration. 3. Ultrasound-guided access of the right radial artery. DIAGNOSES: Coronary artery disease, NSTEMI (Spj-ZA-ulqndri elevation myocardial infarction). HISTORY AND INDICATIONS: The patient is a 64-year-old Indonesian-speaking female with history of hypertension, diabetes mellitus, risk factors of CAD, came to the hospital because of severe substernal cracking chest pain, lasted for more than an hour. He was found to have an acute myocardial infarction. Troponin level was significantly elevated, went up to a maximum of 2.6 and from 3.9 down to 2.6. T-wave changes were in the inferior leads. Hence a coronary angiogram was recommended to assess if the patient is candidate for coronary intervention and revascularization. DESCRIPTION OF PROCEDURE: The patient was brought to the cardiac catheterization laboratory. She was given 0.5 mg of Versed and 25 mcg of fentanyl for sedation. Right radial approach was taken. The right radial artery was cannulated with a micropuncture technique and a 6- Welsh Glidesheath was introduced. Selective right and left coronary angiography was performed by 5-Welsh TIG-4 diagnostic catheter. Left heart catheterization and left ventricular angiogram performed by TIG-4 diagnostic catheter. The patient tolerated the procedure with no complications. Coronary angiogram shows the following findings: Right coronary artery is large and dominant and appeared normal. PDA and PL branches normal. Left coronary system: Left main coronary artery is normal. Left anterior descending artery tortuous and appears normal. Circumflex artery is normal. Left ventricular pressure is 100/10. Aortic pressure is 100/70. No gradient across the aortic valve. Left ventricular angiogram showed normal left ventricular wall motion with an ejection fraction of 70%. SUMMARY OF FINDINGS AND SUGGESTIONS: 1. Normal nonobstructive epicardial coronary arteries. 2. Normal left ventricular systolic function. Ejection fraction is 70%. RECOMMENDATIONS: The patient is reassured that there is no obstructive coronary artery disease. The patient most likely has stress-induced cardiomyopathy, type 2 myocardial infarction. No evidence of coronary artery disease to require intervention. Recommended to continue medical management and the patient can be discharged home on low-dose aspirin. No need for any Plavix or any other antiplatelet drug therapy. DT: 09:03:11 TT: 10:19:00 Ref: [id number] - TID: [id number] MTDD
--- NOTE | 2024-12-12 11:04 | PC.NURSE ---
1030 patient is awake alert, breathing unlabored, s/p LHC by Dr. Crawford, TR band removed now at 1030 by Leslye HENLEY, ok to transfer patient back to room. Report received from Leslye HENLEY, will get patient ready to go back to tele room. 1104 patient is awake, alert, breathing unlabored, dressing to right wrist dry with no bleeding or hematoma, report has been given from Leslye HENLEY to Allegra HENLEY, patient transferred back to tele room 275 with tele box. Patient ambulated to bathroom and voided prior to going back to room.
--- NOTE | 2024-12-12 11:11 | PC.NURSE ---
Spoke w/ pharmacist Qi if I can give pt her 0900 Lisinopril. She said yes go ahead and give it. Pt just returned from central lab technician. Will restart her heparin.
--- NOTE | 2024-12-12 11:18 | PC.NURSE ---
Called Edgardo in pharmacy to verify I do not need to restart pt's heparin drip. He verified it had been discontinued.
--- NOTE | 2024-12-12 13:25 | ESDS_ITS ---
<Statement entered by Sathya Ann MD - 12/15/24 09:09> I reviewed above note and agree with findings and plans. I have also personally examined the patient with medicine team and went over assessment and plan with medical team including hr internship and resident physician. Planned Discharge Date 12/12/24 DS: Providers Provider Date of admission: 12/11/24 03:27 Primary care physician: Flory Perdue PA-C Admitting Provider: Chey Gibbs MD Attending Provider on Admission: Sathya Ann MD Consults: 12/11/24 04:54 Consult to Cardiology Urgent Comment: Elevated troponin, chest pain Consulting Provider: Abhishek Crawford 12/11/24 13:29 [facility] Referral - Nutrition Routine Comment: Positive screening for nutrition needs. [facility] Referral - Transportation Routine Comment: Positive screening for transportation needs. [facility] Referral - Utilities Routine Comment: Positive screening for utility assistance needs. Attending Provider on DC: RESIDENT Claudia Discharging Provider: RESIDENT Claudia Anticipated date of discharge: 12/12/24 DS: Diagnosis Problem List Completed Was Problem List Reviewed/Reconciled?: Yes Hospital Course Hospital Course Hospital course: Reason for hospitalization:?NSTEMI Summary: This patient is a 64-year-old female with a history of, insulin-dependent type 2 diabetes mellitus and hypertension who presented to [facility] ED on 12/11 with complaints of left-sided chest pain and left upper quadrant abdominal pain that started last evening. Patient was admitted for NSTEMI. Patient's pain improved after morphine and nitroglycerin, heparin drip was started due to concerns for NSTEMI given positive troponins and unremarkable EKG. Cardiology was consulted, who performed cardiac catheterization on 12/12, which found normal nonobstructive epicardial coronary arteries, normal left ventricular systolic function with ejection fraction of 70%. Patient was medically cleared to discharge back to home on 12/12 on low-dose aspirin, atorvastatin, and cefpodoxime for UTI. Recommended patient to follow-up with outpatient vigoureux printer and stricter diabetes control. Discharge Recommendations: - Follow up with PCP within 1 week of discharge - Continue rest of medications as previously prescribed - Return to the ED or call EMS if symptoms return and/or worsen - You do not have significant CAD, continue Aspirin and Atorvastatin daily. Follow up with House Nurse outpatient. - Optimize Diabetes Control outpatient, follow up with PCP your A1C is 9.0 - Complete antibiotic treatment for UTI with Cefpodoxime. - Take meds as prescribed, Avoid NSAIDs. If you don't have a PCP, you can make an appointment at the [facility]: [address] [place] [address] Hospital Diagnoses: #NSTEMI, Stress-induced cardiomyopathy, type 2 myocardial infarction #Elevated troponins #Chest pain #UTI #Non-insulin dependent type 2 diabetes mellitus #Primary hypertension Patient plan of care was discussed with the senior resident Dr. Corcoran (PGY-2) and attending physician Dr. Ann. Clifford Higgins, PGY-1 Status at Discharge Overall status at discharge: patient is back to baseline Time Spent with Patient Time attestation: Total time spent providing and/or coordinating discharge services: Time spent: Greater than 30 minutes Exam Vital Signs Temp Pulse Resp BP Pulse Ox O2 Del Method 96.9 F 63 15 142/73 H 98 Room Air 12/12/24 12:00 12/12/24 12:00 12/12/24 12:00 12/12/24 12:00 12/12/24 12:00 12/12/24 12:00 Discharge Plan Plan Patient Disposition: HOME (Self Care) Patient condition on transfer: Stable Care Plan Goals: -You do not have significant CAD, continue Aspirin and Atorvastatin daily. Follow up with House Nurse outpatient. -Optimize Diabetes Control outpatient, follow up with PCP your A1C is 9.0 -Complete antibiotic treatment for UTI with Cefpodoxime. -Take meds as prescribed, Avoid NSAIDs. -Follow-up with PCP 1 to 2 weeks. -Return to ED if symptoms return or worsen. Prescriptions/Referrals Prescriptions/Med Rec: New aspirin 81 mg Tablet,Delayed Release (Dr/Ec) 81 mg PO QDAY 30 Days Qty: 30 0RF atorvastatin 80 mg tablet 80 mg PO HS 30 Days Qty: 30 0RF cefpodoxime 100 mg tablet 100 mg PO BID 5 Days Qty: 10 0RF Rx Instructions: must administer with a meal/food Continued lisinopril 20 MG tablet 10 mg PO QDAY Qty: 0 hydrocodone-acetaminophen 5-325 mg tablet 1 tab PO BID MDD 10 PRN (Reason: pain) Qty: 10 0RF Janumet 50-1,000 mg Tablet 1 tab PO BID acetaminophen [Tylenol Extra Strength] 500 mg tablet 500 mg PO QID PRN (Reason: pain) Qty: 30 0RF Jardiance 25 mg tablet 25 mg PO Patient Comments: TAKE 1 TABLET BY MOUTH EVERY DAY topiramate 25 mg tablet 25 mg PO Patient Comments: TAKE 1 TABLET BY MOUTH DAILY alendronate 35 mg tablet 35 mg PO Held ibuprofen 600 mg Tablet 600 mg PO TID PRN (Reason: Pain) Hold Instructions: Resume on 12/19/24. Follow up with PCP ibuprofen 400 mg tablet 400 mg PO Q8H PRN (Reason: pain) Qty: 30 0RF Hold Instructions: Resume on 12/19/24. Follow up with PCP Discontinued fluconazole [Diflucan] 150 mg tablet 150 mg PO .x1 Qty: 1 0RF amoxicillin 500 mg Capsule 500 mg PO BID hydrocodone-acetaminophen 5-325 mg tablet 1 tab PO BID MDD 10 PRN (Reason: pain) Qty: 10 0RF Referrals: Flory Perdue PA-C [Primary Care Provider] - Abhishek Crawford MD [Physician] - Patient/Caregiver Discharge Instructions Education Materials: Heart Attack Dc, Heart Attack: Back at Home, Living Well After a Heart Attack Print Language: [place] Stand Alone Forms: Bailey Award Info., Patient Portal Info Letter Discharge Order Discharge Orders: Discharge (Routine); Ordered 12/12/24 Ordered By: Dandre Servin Quality Discharge Quality Measures VTE prophylaxis
--- NOTE | 2024-12-12 14:22 | PC.NURSE ---
Pt discharged home via private vehicle accompanied by and son; pt taken to main entrance via w/c accompanied by HUMAN RESOURCES OPERATIONS COORDINATOR. IV dc'd w/o difficulty; pt tolerated well. D/C inst given to and son via [employer] tutoring manager w/ understanding expressed and questions answered.
== END 2024-12-12 14:22 | disposition home or self-care (01) | DRG 190 ==
LOC: SERX 12-11 02:11 → SERHOLD 12-11 03:49 → S2NX 12-11 12:52
PROVIDERS: Internal Medicine Cardiovascular Disease; Admitting Provider Student in an Organized Health Care Education/Training Program; Emergency Provider Emergency Medicine; PCP Physician Assistant; Visit Provider Internal Medicine
PROC: 4A023N7 Measurement of Cardiac Sampling and Pressure, Left Heart, Percutaneous Approach (ICD-10-PCS; principal; 2024-12-12 08:30)
DX: I21.4 Non-ST elevation (NSTEMI) myocardial infarction (principal); I10 Essential (primary) hypertension; E11.9 Type 2 diabetes mellitus without complications; R00.1 Bradycardia, unspecified; N39.0 Urinary tract infection, site not specified; I25.10 Atherosclerotic heart disease of native coronary artery without angina pectoris; Z79.02 Long term (current) use of antithrombotics/antiplatelets; Z79.4 Long term (current) use of insulin; Z79.82 Long term (current) use of aspirin; Z79.84 Long term (current) use of oral hypoglycemic drugs
CPT/HCPCS: 36415; 71046; 74018; 80053; 80061; 80307; 81001; 83036; 83615; 83690; 83735; 83880; 84100; 84484; 85025; 85610; 85730; 87086; 93005; 96365; 96366; 96375; 96376; 99152; 99285; A4649; C1769; C1887; C1894; J0168; J0461; J0696; J1643; J1644; J1815; J2250; J2270; J2312; J2371; J2405; J2765; J3010; J3475; J3490; J7999; Q9967; A9270